=== PATIENT | male | born 1980 | race Two or more races ===

== ENCOUNTER 2017-09-23 02:13 | Emergency (ER) | payer SELFPAY ==
[~2017-09-23] VITALS: Ht 182.9 cm; Wt 79.4 kg
[2017-09-23] MEDS ORDERED: UNOBMED (02:16)
[2017-09-23] MEDS ORDERED: Haloperidol 5mg/ml Inj ONE (02:19)
[2017-09-23] MEDS ORDERED: LORazepam Inj 2mg/ml 1ml ONE (02:19)
[2017-09-23 02:30] VITALS: BP 149/89
[2017-09-23] MEDS ORDERED: Haloperidol 5mg/ml Inj IM ONE (02:30)
[2017-09-23] MEDS ORDERED: LORazepam Inj 2mg/ml 1ml IM ONE (02:30)
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
[2017-09-23 03:30] VITALS: BP 121/62
[2017-09-23 03:55] VITALS: BP 121/62
[2017-09-23] MEDS ORDERED: SUBOXONE 12 MG1 EACH SL (23:00)
== END 2017-09-23 03:55 ==
LOC: EDBD 02:13 → EMR 02:29
DX: F23 Brief psychotic disorder (principal); F14.10 Cocaine abuse, uncomplicated; Z88.6 Allergy status to analgesic agent; Z91.040 Latex allergy status
CPT/HCPCS: 80307; 96372; 99283; J1630

== ENCOUNTER 2017-09-23 22:52 | Emergency (ER) | payer SELFPAY ==
[~2017-09-23] VITALS: Ht 182.9 cm; Wt 81.6 kg
[~2017-09-23 22:52] MED LIST: UNOBMED
[2017-09-23] MEDS ORDERED: SUBOXONE 12 MG1 EACH SL (23:00)
[2017-09-23 23:01] VITALS: BP 132/81
--- NOTE | 2017-09-23 23:10 | Emergency Room Report ---
History of Present Illness General Chief Complaint: Medical Clearance Source: Patient Present Illness HPI A 37-year-old male whom I saw last night for acute psychosis secondary to drug abuse. He was discharged to long term by a motorcycle police officer. In general he complaining of high blood pressure and pain. He is here for medical clearance. Patient said he take blood pressure medication but does not know the name. He was slurring some word. Also asked for Suboxone. No other complaint. No nausea no vomiting. Allergies: Coded Allergies: ACETAMINOPHEN (Verified Allergy, Unknown, 09/23/17) CODEINE (Verified Allergy, Unknown, 09/23/17) LATEX (Verified Allergy, Unknown, 09/23/17) Patient History Past Medical History: see triage record, old chart reviewed Past Surgical History: none Pertinent Family History: none Social History: Reports: smoking, drug use Immunizations: other Reviewed Nursing Documentation: PMH: Agreed, PSxH: Agreed Nursing Documentation-PMH Past Medical History: No Stated History Review of Systems Eye: Denies: eye pain, blurred vision ENT: Denies: ear pain, nose congestion, throat swelling Respiratory: Denies: cough, shortness of breath Cardiovascular: Denies: chest pain, palpitations Gastrointestinal: Denies: abdominal pain, diarrhea, nausea, vomiting Musculoskeletal: Denies: back pain, joint pain Skin: Denies: rash Neurological: Denies: headache, numbness Endocrine: Denies: increased thirst, increased urine Hematologic/Lymphatic: Denies: easy bruising All Other Systems: negative except mentioned in HPI Physical Exam Vital Signs Date Time Temp Pulse Resp B/P (MAP) Pulse Ox O2 Delivery O2 Flow Rate FiO2 09/23/17 22:57 98.3 101 15 132/81 98 Room Air 98.2 vitals unremarkable Sp02 EP Interpretation: reviewed, normal General Appearance: well appearing, no apparent distress, alert Head: normocephalic, atraumatic Eyes: bilateral eye PERRL, bilateral eye EOMI ENT: hearing grossly normal, normal pharynx Neck: full range of motion, supple, no meningismus Respiratory: chest non-tender, lungs clear, normal breath sounds Cardiovascular #1: regular rate, rhythm, no murmur Gastrointestinal: normal bowel sounds, non tender, no mass, no organomegaly, no bruit, non-distended Musculoskeletal: back normal, gait/station normal, normal range of motion Psychiatric: mood/affect normal Skin: warm/dry Medical Decision Making Diagnostic Impression: Primary Impression: Encounter for medical screening examination Additional Impression: Drug abuse ER Course Patient here with chief complaint of high blood pressure. Blood pressure normal. We'll discharge him. He may be going through drug withdrawal. Last Vital Signs Date Time Temp Pulse Resp B/P (MAP) Pulse Ox O2 Delivery O2 Flow Rate FiO2 09/23/17 23:01 98.2 101 15 132/81 98 Room Air 98.2 Status: improved Disposition: D/C TO [facility] ENFORCEMENT IN [facility] Condition: Stable Referrals: NOT CHOSEN IPA/,REFERRING (PCP) Additional Instructions: Followup with your DrEnzo in 7 days. Return for worse. LOLA LECHUGA M.D. Sep 23, 2017 23:10
[2017-09-23 23:15] VITALS: BP 132/81
== END 2017-09-23 23:15 ==
LOC: EMR 23:04
DX: F19.10 Other psychoactive substance abuse, uncomplicated (principal); Z88.6 Allergy status to analgesic agent; Z91.040 Latex allergy status
CPT/HCPCS: 99283